=== PATIENT | male | born 1995 | race Caucasian/White ===

== ENCOUNTER 2017-06-29 22:38 | Emergency (ER) | payer OTHER ==
[~2017-06-29] VITALS: Ht 170.2 cm; Wt 62.6 kg
[2017-06-29 23:01] VITALS: Ht 170.2 cm; Wt 62.6 kg
[2017-06-30 01:23] VITALS: BP 127/71
== END 2017-06-30 01:23 | disposition home or self-care (01) ==
LOC: ED 22:38
DX: S46.212A Strain of muscle, fascia and tendon of other parts of biceps, left arm, initial encounter (principal); S66.812A Strain of other specified muscles, fascia and tendons at wrist and hand level, left hand, initial encounter; J45.909 Unspecified asthma, uncomplicated; X58.XXXA Exposure to other specified factors, initial encounter; Y93.89 Activity, other specified; Y92.89 Other specified places as the place of occurrence of the external cause; Y99.8 Other external cause status

== ENCOUNTER 2018-06-09 09:48 | Emergency (ER) | payer OTHER ==
[~2018-06-09] VITALS: Ht 170.2 cm; Wt 61.7 kg
[2018-06-09 09:59] VITALS: Ht 170.2 cm; Wt 61.7 kg
[2018-06-09 12:13] VITALS: BP 124/72
== END 2018-06-09 12:13 | disposition home or self-care (01) ==
LOC: ED 09:48
DX: J45.909 Unspecified asthma, uncomplicated (principal); R07.89 Other chest pain